=== PATIENT | female | born 1930 | race African-American/Black ===

== ENCOUNTER 2017-01-30 11:52 | Emergency (ER) | payer MEDICARE, MEDICAID ==
[~2017-01-30] VITALS: Ht 167.6 cm; Wt 110.0 kg
[~2017-01-30 11:52] MED LIST: ACET-2178 PO; ASCO500C6 PO; BISA-81 PO; CHOL100026 PO; DOCU-150 PO; ELIQUIS PO; FERR-43 PO; FOLI-43 PO; FURO20TA4 PO; HYDR-4134 PO; ISOSORBIDE DN PO; LEVE1000 PO; LEVO100T9 PO; LOSA100T11 PO; LOV40 SQ; METO25TA6 PO; NITR0.4T3 SL; PROT40 PO; TRAM50TA3 PO; WARF10TA21 PO
[2017-01-30] MEDS ORDERED: ACETAMINOPHEN 325MG TABLET PO STA (12:13)
[2017-01-30 13:03] LABS: BASOPHILS % 1.5 % (0.0-2.0); DIFFERENTIAL COMMENT 0; EOSINOPHILS % 2.3 % (0.0-5.0); HEMATOCRIT. 29.9 % (36.0-48.0); LYMPHOCYTES % 28.7 % (20.0-50.0); MEAN CORPUSCULAR HEMOGLOBIN 24.9 pg (28.0-32.0); MEAN CORPUSCULAR HGB CONC 33.2 g/dL (31.0-37.0); MEAN CORPUSCULAR VOLUME 74.8 fL (81.0-99.0); MEAN PLATELET VOLUME 9.3 fl (7.4-10.4); MONOCYTES % 8.2 % (2.0-8.0); NEUTROPHILS % 59.3 % (40.0-76.0); PLATELET 363 x1000/uL (130-400); RED CELL DISTRIBUTION WIDTH 18.1 % (11.6-14.6); WHITE BLOOD COUNT 6.8 x1000/uL (4.5-11.0)
[2017-01-30 13:35] LABS: ALBUMIN 2.9 g/dL (3.4-5.0); ANION GAP 14; CALCIUM 8.5 mg/dL (8.5-10.1); CARBON DIOXIDE 30 mEq/L (21-32); CHLORIDE 106 mEq/L (98-107); INDEX HEMOLYSI 1 (1-3); INDEX ICTERIC 1 (1-4); INDEX LIPEMIC 1 (1-3); INR 1.1; PARTIAL THROMBOPLASTIN TIME 28.8 sec (24.0-34.0); PROTHROMBIN TIME 11.4 sec; UREA NITROGEN BLOOD 9 mg/dL (7-21)
[2017-01-30 13:42] LABS: ALANINE AMINOTRANSFERASE 9 IU/L (13-61); NT PRO B-TYPE NATRIURETIC PEP 788 pg/mL (5-125); eGFR > 60 mL/min (>60)
[2017-01-30 14:54] LABS: CLARITY URINE CLOUDY (CLEAR); COLOR URINE YELLOW (YELLOW); GLUCOSE URINE NEGATIVE (NEGATIVE); KETONES URINE NEGATIVE (NEGATIVE); LEUKOCYTE ESTERASE URINE 1+ (NEGATIVE); NITRITE URINE NEGATIVE (NEGATIVE); OCCULT BLOOD URINE TRACE (NEGATIVE); PH URINE 7.5 (4.5-8.0); PROTEIN URINE NEGATIVE (NEGATIVE); SPECIFIC GRAVITY URINE 1.013 (1.005-1.030)
[2017-01-30 15:30] LABS: CALCIUM OXALATE CRYSTALS URINE 1+ /lpf; SQUAMOUS EPITHELIAL CELL URINE 2+ /lpf (RARE/1+)
[2017-01-30 15:32] LABS: BACTERIA URINE 3+
[2017-01-30] MEDS ORDERED: CEFTRIAXONE 1 G PREMIX 50 ML IV ONE (15:45)
[2017-01-30 19:15] VITALS: BP 136/71
== END 2017-01-30 19:17 ==
LOC: ER 12:06
DX: N39.0 Urinary tract infection, site not specified (principal); I10 Essential (primary) hypertension; E11.9 Type 2 diabetes mellitus without complications; F03.90 Unspecified dementia, unspecified severity, without behavioral disturbance, psychotic disturbance, mood disturbance, and anxiety; M19.90 Unspecified osteoarthritis, unspecified site; Z79.899 Other long term (current) drug therapy; Z79.01 Long term (current) use of anticoagulants; E78.00 Pure hypercholesterolemia, unspecified; Z85.3 Personal history of malignant neoplasm of breast; E03.9 Hypothyroidism, unspecified; M25.561 Pain in right knee
CPT/HCPCS: 36415; 71010; 80053; 81001; 83605; 83880; 85025; 85610; 85730; 87040; 87086; 93005; 96365; 99285; J0696

== ENCOUNTER 2019-01-12 13:22 | Emergency (ER) | payer MEDICARE, MEDICAID ==
[~2019-01-12] VITALS: Ht 172.7 cm; Wt 82.0 kg
[~2019-01-12 13:22] MED LIST changes: -CHOL100026 PO; +CHOL100044 PO; +CLON0.2T PO; -LOSA100T11 PO; +LOSA100T3 PO; -NITR0.4T3 SL; +NITR0.4T49 SL
[2019-01-12 14:52] LABS: BASOPHILS % 0.5 % (0.0-2.0); EOSINOPHILS % 2.9 % (0.0-5.0); HEMATOCRIT. 25.2 % (36.0-48.0); HEMOGLOBIN. 8.4 g/dL (12.0-16.0); MEAN CORPUSCULAR HEMOGLOBIN 23.8 pg (28.0-32.0); MEAN CORPUSCULAR VOLUME 71.8 fL (81.0-99.0); MEAN PLATELET VOLUME 9.4 fl (7.4-10.4); MONOCYTES % 6.9 % (2.0-8.0); NEUTROPHILS % 63.7 % (40.0-76.0); PLATELET 273 x1000/uL (130-400); RED BLOOD CELL COUNT 3.51 mill/uL (4.2-5.4); RED CELL DISTRIBUTION WIDTH 18.9 % (11.6-14.6)
[2019-01-12 14:57] LABS: CHLORIDE 108 mEq/L (98-107)
[2019-01-12 18:12] LABS: CLARITY URINE CLOUDY (CLEAR); COLOR URINE YELLOW (YELLOW); KETONES URINE NEGATIVE (NEGATIVE); LEUKOCYTE ESTERASE URINE 3+ (NEGATIVE); NITRITE URINE POSITIVE (NEGATIVE); OCCULT BLOOD URINE 3+ (NEGATIVE); PH URINE 6.5 (4.5-8.0); PROTEIN URINE TRACE (NEGATIVE); SPECIFIC GRAVITY URINE 1.015 (1.005-1.030)
[2019-01-12 21:10] VITALS: BP 128/63
== END 2019-01-12 19:29 | disposition home or self-care (01) ==
LOC: ER 13:22
DX: N39.0 Urinary tract infection, site not specified (principal); E78.00 Pure hypercholesterolemia, unspecified; E11.9 Type 2 diabetes mellitus without complications; I11.0 Hypertensive heart disease with heart failure; I50.9 Heart failure, unspecified; E86.0 Dehydration; D64.9 Anemia, unspecified; E88.09 Other disorders of plasma-protein metabolism, not elsewhere classified; D32.0 Benign neoplasm of cerebral meninges; R60.9 Edema, unspecified; R79.89 Other specified abnormal findings of blood chemistry; Z85.9 Personal history of malignant neoplasm, unspecified; Z86.73 Personal history of transient ischemic attack (TIA), and cerebral infarction without residual deficits
CPT/HCPCS: 36415; 71045; 82962; 83880; 84484; 87077; 87186; 93005; 99284

== ENCOUNTER 2021-04-25 14:02 | Inpatient (IN) | payer MEDICARE, MEDICAID ==
[~2021-04-25] VITALS: Ht 167.6 cm; Wt 72.7 kg
[~2021-04-25 14:02] MED LIST changes: -ACET-2178 PO; +SULF1TAB48 PO; +TOPUD PO
[2021-04-25 15:56] LABS: BASOPHILS % 0.1 % (0.0-2.0); EOSINOPHILS % 0.2 % (0.0-5.0); HEMATOCRIT. 27.1 % (36.0-48.0); HEMOGLOBIN. 9.1 g/dL (12.0-16.0); LYMPHOCYTES % 15.6 % (20.0-50.0); MEAN CORPUSCULAR HEMOGLOBIN 23.8 pg (28.0-32.0); MEAN PLATELET VOLUME 7.9 fl (7.4-10.4); MONOCYTES % 6.9 % (2.0-8.0); NEUTROPHILS % 77.2 % (40.0-76.0); PLATELET 502 x1000/uL (130-400); RED BLOOD CELL COUNT 3.81 mill/uL (4.2-5.4); RED CELL DISTRIBUTION WIDTH 21.8 % (11.6-14.6)
[2021-04-25 16:02] LABS: CHLORIDE 108 mEq/L (98-107)
[2021-04-25 16:05] LABS: PROTHROMBIN TIME 10.9 sec (9.6-11.0)
[2021-04-25] MEDS ORDERED: ONDANSETRON HCL 4MG/2ML INJ IV PRN (18:00)
[2021-04-25] MEDS ORDERED: CLONIDINE 0.1MG TABLET PO PRN (18:00)
[2021-04-25] MEDS ORDERED: ACETAMINOPHEN 325MG TABLET PO PRN ×2 (18:00)
[2021-04-25] MEDS ORDERED: LEVOFLOXACIN 500MG PREMIX 100 ML IV SCH (18:00)
[2021-04-25] MEDS ORDERED: LORAZEPAM 2MG/ML CPJ IV PRN (18:00)
[2021-04-25] MEDS: ENOXAPARIN 30MG/0.3ML SYR SUBCUT SCH (18:18)
[2021-04-25] MEDS: DEXT 5%/0.45% NACL 1000ML 1,000 ML IV SCH (18:31)
[2021-04-25] MEDS: LEVETIRACETAM 500MG PREMIX 100 ML IV SCH (21:06)
[2021-04-25 22:00] LABS: CLARITY URINE TURBID (CLEAR); COLOR URINE YELLOW (YELLOW); KETONES URINE TRACE (NEGATIVE); LEUKOCYTE ESTERASE URINE 3+ (NEGATIVE); NITRITE URINE NEGATIVE (NEGATIVE); OCCULT BLOOD URINE 2+ (NEGATIVE); PH URINE 8.5 (4.5-8.0); PROTEIN URINE 2+ (NEGATIVE); SPECIFIC GRAVITY URINE 1.014 (1.005-1.030)
[2021-04-25 22:10] VITALS: BP 101/65
[2021-04-26] VITALS: BP 101/65
[2021-04-26 04:00] VITALS: BP 127/86
[2021-04-26] MEDS: DEXT 5%/0.45% NACL 1000ML 1,000 ML IV SCH ×2 (04:55→09:12)
[2021-04-26 08:00] VITALS: BP 83/33
[2021-04-26 08:21] LABS: BASOPHILS % 0.3 % (0.0-2.0); EOSINOPHILS % 0.1 % (0.0-5.0); HEMATOCRIT. 24.2 % (36.0-48.0); HEMOGLOBIN. 8.2 g/dL (12.0-16.0); LYMPHOCYTES % 11.4 % (20.0-50.0); MEAN CORPUSCULAR HEMOGLOBIN 24.1 pg (28.0-32.0); MEAN CORPUSCULAR VOLUME 71.1 fL (81.0-99.0); MEAN PLATELET VOLUME 7.8 fl (7.4-10.4); MONOCYTES % 5.5 % (2.0-8.0); NEUTROPHILS % 82.7 % (40.0-76.0); PLATELET 406 x1000/uL (130-400); RED BLOOD CELL COUNT 3.39 mill/uL (4.2-5.4); RED CELL DISTRIBUTION WIDTH 21.3 % (11.6-14.6)
[2021-04-26 08:33] LABS: PHOSPHORUS 3.1 mg/dL (2.5-4.9)
[2021-04-26] MEDS: LEVOTHYROXINE SODIUM 100MCG TABLET PO SCH (09:11)
[2021-04-26] MEDS: CHOLECALCIFEROL (D3) 1000 UNIT TABLET PO SCH (09:11)
[2021-04-26] MEDS: MULTIVITAMINS,THER W-MINERALS TABLET PO SCH (09:11)
[2021-04-26] MEDS: LEVETIRACETAM 500MG PREMIX 100 ML IV SCH ×2 (09:35→21:32)
[2021-04-26 12:00] VITALS: BP 85/93
[2021-04-26 16:00] VITALS: BP 100/42
[2021-04-26] MEDS: LEVOFLOXACIN 250 MG IV SCH (17:21)
[2021-04-26] MEDS: ENOXAPARIN 30MG/0.3ML SYR SUBCUT SCH (17:24)
[2021-04-26 20:00] VITALS: BP 91/52
[2021-04-27] VITALS: BP 139/49
[2021-04-27] MEDS: DEXT 5%/0.45% NACL 1000ML 1,000 ML IV SCH ×3 (00:14→20:41)
[2021-04-27 04:00] VITALS: BP 97/44
[2021-04-27] MEDS: LEVOTHYROXINE SODIUM 100MCG TABLET PO SCH (06:24)
[2021-04-27 07:45] LABS: HEMATOCRIT. 25.7 % (36.0-48.0); HEMOGLOBIN. 8.6 g/dL (12.0-16.0); MEAN CORPUSCULAR HEMOGLOBIN 23.8 pg (28.0-32.0); MEAN CORPUSCULAR VOLUME 71.2 fL (81.0-99.0); MEAN PLATELET VOLUME 7.9 fl (7.4-10.4); PLATELET 433 x1000/uL (130-400); RED BLOOD CELL COUNT 3.61 mill/uL (4.2-5.4); RED CELL DISTRIBUTION WIDTH 22.3 % (11.6-14.6)
[2021-04-27 08:00] VITALS: BP 104/43
[2021-04-27] MEDS: LEVETIRACETAM 500MG PREMIX 100 ML IV SCH ×3 (09:00→20:41)
[2021-04-27] MEDS: CHOLECALCIFEROL (D3) 1000 UNIT TABLET PO SCH (09:16)
[2021-04-27] MEDS: ZINC SULFATE 220 MG ( 50 ) CAPSULE PO SCH (09:16)
[2021-04-27] MEDS: ASCORBIC ACID 500 MG TABLET PO SCH (09:17)
[2021-04-27] MEDS: MULTIVITAMINS,THER W-MINERALS TABLET PO SCH (09:17)
[2021-04-27 12:00] VITALS: BP 104/50
[2021-04-27 16:00] VITALS: BP 113/69
[2021-04-27] MEDS: LEVOFLOXACIN 250 MG IV SCH (17:12)
[2021-04-27] MEDS: ENOXAPARIN 30MG/0.3ML SYR SUBCUT SCH (17:16)
[2021-04-27 20:00] VITALS: BP 92/46
[2021-04-27 22:55] LABS: PLATELET ESTIMATE INCREASED
[2021-04-27] MEDS ORDERED: CEFTRIAXONE 1,000 MG in DEXTROSE 5% WATER 50 ML IV SCH (23:00)
[2021-04-28] VITALS: BP 110/58
[2021-04-28 04:00] VITALS: BP 91/46
[2021-04-28] MEDS: DEXT 5%/0.45% NACL 1000ML 1,000 ML IV SCH (05:43)
[2021-04-28] MEDS: LEVOTHYROXINE SODIUM 100MCG TABLET PO SCH (06:52)
[2021-04-28 08:00] VITALS: BP 116/57
[2021-04-28] MEDS: LEVETIRACETAM 500MG PREMIX 100 ML IV SCH ×2 (09:43→21:26)
[2021-04-28] MEDS: ZINC SULFATE 220 MG ( 50 ) CAPSULE PO SCH (09:44)
[2021-04-28] MEDS: MEGESTROL ACETATE 400 MG/10 ML UDC PO SCH ×2 (09:44→17:34)
[2021-04-28] MEDS: MULTIVITAMINS,THER W-MINERALS TABLET PO SCH (09:44)
[2021-04-28] MEDS: ASCORBIC ACID 500 MG TABLET PO SCH (09:44)
[2021-04-28] MEDS: CHOLECALCIFEROL (D3) 1000 UNIT TABLET PO SCH (09:44)
[2021-04-28] MEDS: SODIUM HYPOCHLORITE 0.125% 473ML SOLUTION TOP SCH (11:45)
[2021-04-28] MEDS ORDERED: MEROPENEM 1,000 MG in SODIUM CHLORIDE 0.9% 100 ML IV SCH (15:30)
[2021-04-28] MEDS: MEROPENEM-0.9% SODIUM CHLORIDE 50 ML IV SCH (17:34)
[2021-04-28] MEDS: ENOXAPARIN 30MG/0.3ML SYR SUBCUT SCH (17:35)
[2021-04-28 20:00] VITALS: BP 104/54
[2021-04-29 00:06] VITALS: BP 108/54
[2021-04-29 04:00] VITALS: BP 113/57
[2021-04-29] MEDS: LEVOTHYROXINE SODIUM 100MCG TABLET PO SCH (06:00)
[2021-04-29] MEDS: MEROPENEM-0.9% SODIUM CHLORIDE 50 ML IV SCH (06:00)
[2021-04-29 08:00] VITALS: BP 101/68
[2021-04-29] MEDS: LEVETIRACETAM 500MG PREMIX 100 ML IV SCH (09:00)
[2021-04-29] MEDS: ZINC SULFATE 220 MG ( 50 ) CAPSULE PO SCH (09:27)
[2021-04-29] MEDS: MEGESTROL ACETATE 400 MG/10 ML UDC PO SCH ×2 (09:27→17:00)
[2021-04-29] MEDS: MULTIVITAMINS,THER W-MINERALS TABLET PO SCH (09:27)
[2021-04-29] MEDS: ASCORBIC ACID 500 MG TABLET PO SCH (09:27)
[2021-04-29] MEDS: CHOLECALCIFEROL (D3) 1000 UNIT TABLET PO SCH (09:27)
[2021-04-29] MEDS: SODIUM HYPOCHLORITE 0.125% 473ML SOLUTION TOP SCH (09:34)
[2021-04-29 12:00] VITALS: BP 100/57
[2021-04-29 16:00] VITALS: BP 122/98
[2021-04-29] MEDS ORDERED: MEROPENEM 500MG in NORMAL SALINE 50ML IV SCH (18:00)
[2021-04-29] MEDS: ENOXAPARIN 30MG/0.3ML SYR SUBCUT SCH (18:15)
[2021-04-29] MEDS: SULFAMETHOXAZOLE/TRIMETHOPRIM 400/80MG TAB PO SCH ×2 (21:00→21:52)
[2021-04-29] MEDS ORDERED: SULFAMETHOXAZOLE/TRIMETHOPRIM 800/160MG TABLET PO SCH (21:00)
[2021-04-29] MEDS: LEVETIRACETAM 500MG/5ML CUP PO SCH ×2 (21:00→21:52)
[2021-04-30] VITALS: BP 115/52
[2021-04-30 04:00] VITALS: BP 114/44
[2021-04-30] MEDS: LEVOTHYROXINE SODIUM 100MCG TABLET PO SCH (06:42)
[2021-04-30 08:00] VITALS: BP 100/64
[2021-04-30] MEDS: ASCORBIC ACID 500 MG TABLET PO SCH (09:00)
[2021-04-30] MEDS: SULFAMETHOXAZOLE/TRIMETHOPRIM 400/80MG TAB PO SCH ×2 (09:00→21:00)
[2021-04-30] MEDS: MULTIVITAMINS,THER W-MINERALS TABLET PO SCH (09:00)
[2021-04-30] MEDS: ZINC SULFATE 220 MG ( 50 ) CAPSULE PO SCH (09:00)
[2021-04-30] MEDS: MEGESTROL ACETATE 400 MG/10 ML UDC PO SCH ×2 (09:00→17:00)
[2021-04-30] MEDS: CHOLECALCIFEROL (D3) 1000 UNIT TABLET PO SCH (09:00)
[2021-04-30] MEDS ORDERED: LEVETIRACETAM 500MG PREMIX 100 ML IV SCH (09:00)
[2021-04-30] MEDS: SODIUM HYPOCHLORITE 0.125% 473ML SOLUTION TOP SCH (09:00)
[2021-04-30] MEDS: LEVETIRACETAM 500MG PREMIX 100 ML IV SCH ×2 (11:11→22:31)
[2021-04-30 12:00] VITALS: BP 97/60
[2021-04-30 16:00] VITALS: BP 121/54
[2021-04-30] MEDS: ENOXAPARIN 30MG/0.3ML SYR SUBCUT SCH (17:45)
[2021-04-30 20:00] VITALS: BP 117/49
[2021-05-01] VITALS: BP 98/70
[2021-05-01 04:00] VITALS: BP 112/65
[2021-05-01] MEDS: LEVOTHYROXINE SODIUM 100MCG TABLET PO SCH (06:36)
[2021-05-01] MEDS: LEVETIRACETAM 500MG PREMIX 100 ML IV SCH ×2 (08:25→21:34)
[2021-05-01] MEDS: ZINC SULFATE 220 MG ( 50 ) CAPSULE PO SCH (08:29)
[2021-05-01] MEDS: MEGESTROL ACETATE 400 MG/10 ML UDC PO SCH ×2 (08:29→17:00)
[2021-05-01] MEDS: MULTIVITAMINS,THER W-MINERALS TABLET PO SCH (08:29)
[2021-05-01] MEDS: SULFAMETHOXAZOLE/TRIMETHOPRIM 400/80MG TAB PO SCH ×2 (08:29→21:00)
[2021-05-01] MEDS: SODIUM HYPOCHLORITE 0.125% 473ML SOLUTION TOP SCH (08:30)
[2021-05-01] MEDS: ASCORBIC ACID 500 MG TABLET PO SCH (08:30)
[2021-05-01] MEDS: CHOLECALCIFEROL (D3) 1000 UNIT TABLET PO SCH (08:30)
[2021-05-01 12:00] VITALS: BP 101/50
[2021-05-01 16:00] VITALS: BP 100/50
[2021-05-01] MEDS: PANTOPRAZOLE SODIUM 40 MG/VIAL IV SCH (21:35)
[2021-05-02] VITALS: BP 96/50
[2021-05-02 04:00] VITALS: BP 100/46
[2021-05-02] MEDS: LEVOTHYROXINE SODIUM 100MCG TABLET PO SCH (06:27)
[2021-05-02 07:25] LABS: BASOPHILS % 0.6 % (0.0-2.0); EOSINOPHILS % 0.5 % (0.0-5.0); HEMOGLOBIN. 8.7 g/dL (12.0-16.0); LYMPHOCYTES % 19.5 % (20.0-50.0); MEAN CORPUSCULAR HEMOGLOBIN 23.8 pg (28.0-32.0); MEAN CORPUSCULAR VOLUME 70.8 fL (81.0-99.0); MEAN PLATELET VOLUME 8.1 fl (7.4-10.4); MONOCYTES % 5.4 % (2.0-8.0); PLATELET 309 x1000/uL (130-400); RED BLOOD CELL COUNT 3.68 mill/uL (4.2-5.4); RED CELL DISTRIBUTION WIDTH 22.4 % (11.6-14.6)
[2021-05-02 07:38] LABS: INR 1.1; PROTHROMBIN TIME 11.9 sec (9.6-11.0)
[2021-05-02] MEDS: MULTIVITAMINS,THER W-MINERALS TABLET PO SCH (09:00)
[2021-05-02] MEDS: CHOLECALCIFEROL (D3) 1000 UNIT TABLET PO SCH (09:00)
[2021-05-02] MEDS: SULFAMETHOXAZOLE/TRIMETHOPRIM 400/80MG TAB PO SCH ×2 (09:00→21:38)
[2021-05-02] MEDS: ZINC SULFATE 220 MG ( 50 ) CAPSULE PO SCH (09:00)
[2021-05-02] MEDS: MEGESTROL ACETATE 400 MG/10 ML UDC PO SCH ×2 (09:00→17:00)
[2021-05-02] MEDS: ASCORBIC ACID 500 MG TABLET PO SCH (09:00)
[2021-05-02] MEDS: LEVETIRACETAM 500MG PREMIX 100 ML IV SCH ×2 (10:54→21:37)
[2021-05-02] MEDS: PANTOPRAZOLE SODIUM 40 MG/VIAL IV SCH ×2 (10:54→21:38)
[2021-05-02] MEDS: SODIUM HYPOCHLORITE 0.125% 473ML SOLUTION TOP SCH (10:54)
[2021-05-02] MEDS ORDERED: MIDAZOLAM HCL 5 MG/5 ML VIAL ONE (14:08)
[2021-05-02] MEDS ORDERED: FENTANYL CITRATE/PF 50MCG/ML 2ML VIAL ONE (14:08)
[2021-05-02] MEDS ORDERED: MIDAZOLAM HCL 5 MG/5 ML VIAL IV PRN (14:12)
[2021-05-02 14:27] LABS: PLATELET ESTIMATE NORMAL
[2021-05-02] MEDS ORDERED: CEFAZOLIN 1000MG PREMIX 50 ML IV ONE (15:00)
[2021-05-02 20:00] VITALS: BP 108/60
[2021-05-03] VITALS: BP 100/52
[2021-05-03 04:00] VITALS: BP 99/42
[2021-05-03] MEDS: LEVOTHYROXINE SODIUM 100MCG TABLET PO SCH (06:29)
[2021-05-03 08:00] VITALS: BP 100/53
[2021-05-03] MEDS: MEGESTROL ACETATE 400 MG/10 ML UDC PO SCH ×2 (09:00→17:57)
[2021-05-03] MEDS: FAMOTIDINE 20MG TABLET PO SCH (09:00)
[2021-05-03] MEDS: LEVETIRACETAM 500MG PREMIX 100 ML IV SCH (09:00)
[2021-05-03] MEDS: ZINC SULFATE 220 MG ( 50 ) CAPSULE PO SCH (09:00)
[2021-05-03] MEDS: MULTIVITAMINS,THER W-MINERALS TABLET PO SCH (09:01)
[2021-05-03] MEDS: CHOLECALCIFEROL (D3) 1000 UNIT TABLET PO SCH (09:01)
[2021-05-03] MEDS: SULFAMETHOXAZOLE/TRIMETHOPRIM 400/80MG TAB PO SCH (09:01)
[2021-05-03] MEDS: ASCORBIC ACID 500 MG TABLET PO SCH (09:01)
[2021-05-03] MEDS: SODIUM HYPOCHLORITE 0.125% 473ML SOLUTION TOP SCH (09:02)
[2021-05-03 12:00] VITALS: BP 98/46
[2021-05-03] MEDS: DEXT 5%/0.45% NACL 1000ML 1,000 ML IV SCH (12:00)
[2021-05-03] MEDS: MEROPENEM 500 MG in SODIUM CHLORIDE 0.9% 50 ML IV SCH (14:44)
[2021-05-03 16:00] VITALS: BP 94/50
[2021-05-03 20:00] VITALS: BP 97/47
[2021-05-03] MEDS: LEVETIRACETAM 500MG/5ML CUP GT SCH (21:41)
[2021-05-04] VITALS: BP 91/44
[2021-05-04] MEDS: DEXT 5%/0.45% NACL 1000ML 1,000 ML IV SCH ×2 (00:33→14:40)
[2021-05-04] MEDS: MEROPENEM 500 MG in SODIUM CHLORIDE 0.9% 50 ML IV SCH ×2 (01:10→17:30)
[2021-05-04 04:00] VITALS: BP 95/49
[2021-05-04] MEDS: LEVOTHYROXINE SODIUM 100MCG TABLET PO SCH (06:23)
[2021-05-04 08:53] LABS: BASOPHILS % 0.2 % (0.0-2.0); EOSINOPHILS % 0.7 % (0.0-5.0); HEMATOCRIT. 25.1 % (36.0-48.0); HEMOGLOBIN. 8.4 g/dL (12.0-16.0); LYMPHOCYTES % 12.1 % (20.0-50.0); MEAN CORPUSCULAR HEMOGLOBIN 24.2 pg (28.0-32.0); MEAN CORPUSCULAR VOLUME 72.5 fL (81.0-99.0); MEAN PLATELET VOLUME 8.1 fl (7.4-10.4); MONOCYTES % 6.4 % (2.0-8.0); NEUTROPHILS % 80.6 % (40.0-76.0); PLATELET 223 x1000/uL (130-400); RED BLOOD CELL COUNT 3.46 mill/uL (4.2-5.4); RED CELL DISTRIBUTION WIDTH 22.6 % (11.6-14.6)
[2021-05-04 09:10] LABS: PHOSPHORUS 2.3 mg/dL (2.5-4.9)
[2021-05-04] MEDS: ASCORBIC ACID 500 MG TABLET PO SCH (09:25)
[2021-05-04] MEDS: LEVETIRACETAM 500MG/5ML CUP GT SCH ×2 (09:25→21:11)
[2021-05-04] MEDS: MULTIVITAMINS,THER W-MINERALS TABLET PO SCH (09:25)
[2021-05-04] MEDS: ZINC SULFATE 220 MG ( 50 ) CAPSULE PO SCH (09:25)
[2021-05-04] MEDS: MEGESTROL ACETATE 400 MG/10 ML UDC PO SCH ×2 (09:25→17:29)
[2021-05-04] MEDS: THIAMINE HCL 100MG TABLET PO SCH (09:25)
[2021-05-04] MEDS: FOLIC ACID 1MG TABLET PO SCH (09:26)
[2021-05-04] MEDS: CHOLECALCIFEROL (D3) 1000 UNIT TABLET PO SCH (09:26)
[2021-05-04] MEDS: FAMOTIDINE 20MG TABLET PO SCH (09:26)
[2021-05-04] MEDS: SODIUM HYPOCHLORITE 0.125% 473ML SOLUTION TOP SCH (09:41)
[2021-05-04 20:00] VITALS: BP 106/53
[2021-05-04] MEDS ORDERED: POTASSIUM PHOS,M-BASIC-D-BASIC 10 MMOL in DEXT 5% WATER 246.6667 ML IV NR (21:30)
[2021-05-05] VITALS (7 sets, daily range): BP systolic 100–109; BP diastolic 44–66
[2021-05-05] MEDS: MEROPENEM 500 MG in SODIUM CHLORIDE 0.9% 50 ML IV SCH ×2 (02:23→14:44)
[2021-05-05] MEDS: DEXT 5%/0.45% NACL 1000ML 1,000 ML IV SCH ×2 (04:00→17:52)
[2021-05-05] MEDS: LEVOTHYROXINE SODIUM 100MCG TABLET PO SCH (06:20)
[2021-05-05] MEDS: MULTIVITAMINS,THER W-MINERALS TABLET PO SCH (09:11)
[2021-05-05] MEDS: CHOLECALCIFEROL (D3) 1000 UNIT TABLET PO SCH (09:11)
[2021-05-05] MEDS: FOLIC ACID 1MG TABLET PO SCH (09:11)
[2021-05-05] MEDS: ASCORBIC ACID 500 MG TABLET PO SCH (09:11)
[2021-05-05] MEDS: LEVETIRACETAM 500MG/5ML CUP GT SCH ×2 (09:12→20:25)
[2021-05-05] MEDS: ZINC SULFATE 220 MG ( 50 ) CAPSULE PO SCH (09:12)
[2021-05-05] MEDS: MEGESTROL ACETATE 400 MG/10 ML UDC PO SCH ×2 (09:12→17:51)
[2021-05-05] MEDS: THIAMINE HCL 100MG TABLET PO SCH (09:13)
[2021-05-05] MEDS: FAMOTIDINE 20MG TABLET PO SCH (09:13)
[2021-05-05] MEDS: SODIUM HYPOCHLORITE 0.125% 473ML SOLUTION TOP SCH (09:17)
[2021-05-05] MEDS ORDERED: SULF1TAB48 MT (17:04)
[2021-05-05] MEDS ORDERED: SULF1TAB48 PO (17:14)
== END 2021-05-05 22:00 | DRG 871 ==
LOC: ER 14:02 → 6EST 18:08 → ENRESERV 20:50
PROVIDERS: ADMIT Internal Medicine; ATTEND Internal Medicine
PROC: 0DH63UZ Insertion of Feeding Device into Stomach, Percutaneous Approach (ICD-10-PCS; principal; 2021-05-02)
PROC: 0DB68ZX Excision of Stomach, Via Natural or Artificial Opening Endoscopic, Diagnostic (ICD-10-PCS; 2021-05-02)
DX: A41.9 Sepsis, unspecified organism (principal); L89.154 Pressure ulcer of sacral region, stage 4; N17.0 Acute kidney failure with tubular necrosis; N39.0 Urinary tract infection, site not specified; E46 Unspecified protein-calorie malnutrition; N13.6 Pyonephrosis; Z16.12 Extended spectrum beta lactamase (ESBL) resistance; D63.8 Anemia in other chronic diseases classified elsewhere; E03.9 Hypothyroidism, unspecified; E86.0 Dehydration; E78.00 Pure hypercholesterolemia, unspecified; F03.90 Unspecified dementia, unspecified severity, without behavioral disturbance, psychotic disturbance, mood disturbance, and anxiety; G40.909 Epilepsy, unspecified, not intractable, without status epilepticus; K29.50 Unspecified chronic gastritis without bleeding; I73.9 Peripheral vascular disease, unspecified; Z20.822 Contact with and (suspected) exposure to COVID-19; I10 Essential (primary) hypertension; R62.7 Adult failure to thrive; B96.20 Unspecified Escherichia coli [E. coli] as the cause of diseases classified elsewhere; D50.9 Iron deficiency anemia, unspecified; L85.3 Xerosis cutis; L89.309 Pressure ulcer of unspecified buttock, unspecified stage; Z93.1 Gastrostomy status; Z68.25 Body mass index [BMI] 25.0-25.9, adult; Z79.899 Other long term (current) drug therapy
CPT/HCPCS: 36415; 71045; 76770; 80048; 80053; 81003; 82040; 83735; 84100; 84134; 84443; 85025; 87077; 87186; 87426; 88305; 93005; 93923; 99285; C1893; C9113; J0690; J0696; J1650; J1953; J1956; J2060; J2185; J2250; J3010; J3490; J7060; A4315